=== PATIENT | male | born 1990 | race Caucasian/White ===

== ENCOUNTER → 2017-04-15 | Outpatient (CLI) | payer OTHER ==
--- NOTE | ~2017-04-15 | CT4 ---
[facility] A Service of [facility] RADIOLOGY TEXT RESULTS PATIENT: TIAGO QUEVEDO LOCATION: [facility] : [birth year] UNIT #: [id number] AGE: [address]: Aidan Allison MD SEX: M ORDER DR: [id number] [facility] [place], [place] [address] [id number] O MR#: [id number] Acc #: [id number] NAME: TIAGO QUEVEDO : 1990 SEX: M STUDY DATE/TIME: 04/15/2017 16:44 UNIT: [facility] ROOM: STUDY DESCRIPTION: CT Abd and Pelv Wo Cont Attending Physician: Aidan Allison M.D. Referring Physician: Aidan Allison M.D. Ordering Physician: Aidan Allison M.D. Primary Care Physician: Keo Santos M.D. MEDICAL IMAGING REPORT This report is preliminary unless electronic signature is present EXAM CT abdomen and pelvis without contrast INDICATIONS Hematuria, vomiting, diarrhea for 2 days. Blood in urine. COMPARISON None. TECHNIQUE Axial 3-mm images were obtained through the abdomen and pelvis without IV or oral contrast. Sagittal and coronal reconstructions were generated. This CT exam was performed with one or more of the following radiation dose reduction techniques: Automatic exposure control, adjustment of mA and/or kV according to patient size, and iterative reconstruction. FINDINGS Lung bases are clear. The liver, gallbladder, spleen, pancreas, adrenal glands and kidneys are normal in appearance. The aorta is normal in size and there is no adenopathy. The bowel is normal. The appendix is not visualized, but there is no evidence of appendicitis. The bladder and prostate gland are normal. The bones are unremarkable. IMPRESSION Normal CT abdomen and pelvis. No inflammation is identified. There are no urinary stones. Dictated by... Matthew Urban M.D. THIS IS AN ELECTRONICALLY VERIFIED REPORT Matthew Urban M.D. at 04/16/2017 6:04 AM [facility] A Service of [facility] RADIOLOGY TEXT RESULTS PATIENT: TIAGO QUEVEDO LOCATION: [facility] #: [id number] : [birth year] UNIT #: [id number] AGE: [address]: Aidan Allison MD SEX: M ORDER DR: JOSIE/suleiman TD: 04/16/2017 04:16 JOB #: [id number] MEDICAL IMAGING REPORT Page 1 of 1 COPY
== END | disposition home or self-care (01) ==
LOC: CCAT 15:51
DX: R31.9 Hematuria, unspecified (principal)
CPT/HCPCS: 74176